=== PATIENT | male | born 1990 | race Caucasian/White ===

== ENCOUNTER 2017-03-23 12:41 | Emergency (ER) | payer OTHER ==
[~2017-03-23] VITALS: Ht 180.3 cm; Wt 128.0 kg
[~2017-03-23 12:41] MED LIST: PALI156P IM; QUET1TAB67 PO; RISP3 PO; RISP4TAB41 PO
[2017-03-23] MEDS ORDERED: RISP4TAB41 PO (12:53)
[2017-03-23] MEDS ORDERED: SERO50TA PO (12:53)
--- NOTE | 2017-03-23 13:18 | PD ---
HPI Chief Complaint: Psychiatric Symptoms Time Seen by Provider: 13:14 Travel History International Travel<30 days: No Contact w/Intl Traveler<30days: No Traveled to known affect area: No History of Present Illness HPI [place] acted by police....parents called police because patient threatened to hurt/kill parents because they refused to give him money to go buy alcohol. patient is angry and uncooperative with history, feels that he shouldn't be here. PFSH Past Medical History Cardiovascular Problems: No Diabetes: No Genitourinary: No Musculoskeletal: No Neurologic: No Reproductive: No Respiratory: No Schizophrenia: Yes Social History Alcohol Use: No Tobacco Use: Yes Substance Use: No (Pt denies) Allergies-Medications (Allergen,Severity, Reaction): Coded Allergies: No Known Allergies (Unverified Adverse Reaction, Unknown, 03/23/17) Reported Meds & Prescriptions Reported Meds & Active Scripts Active Reported Risperdal (Risperidone) 4 Mg Tab 4 Mg PO Q12HR Seroquel (Quetiapine Fumarate) 50 Mg Tab 50 Mg PO HS Review of Systems General / Constitutional: No: Fever Eyes: No: Visual changes HENT: No: Headaches Cardiovascular: No: Chest Pain or Discomfort Respiratory: No: Shortness of Breath Gastrointestinal: No: Abdominal Pain Genitourinary: No: Dysuria Musculoskeletal: No: Pain Skin: No Rash Neurologic: No: Weakness Psychiatric: Positive: Homicidal Ideation Endocrine: No: Polydipsia Hematologic/Lymphatic: No: Easy Bruising Physical Exam Narrative GENERAL: disheveled appearance SKIN: Warm and dry. HEAD: Atraumatic. Normocephalic. EYES: Pupils equal and round. No scleral icterus. No injection or drainage. ENT: No nasal bleeding or discharge. Mucous membranes pink and moist. NECK: Trachea midline. No JVD. CARDIOVASCULAR: Regular rate and rhythm. RESPIRATORY: No accessory muscle use. Clear to auscultation. Breath sounds equal bilaterally. GASTROINTESTINAL: Abdomen soft, non-tender, nondistended. Hepatic and splenic margins not palpable. MUSCULOSKELETAL: Extremities without clubbing, cyanosis, or edema. No obvious deformities. NEUROLOGICAL: Awake and alert. No obvious cranial nerve deficits. Motor grossly within normal limits. Five out of 5 muscle strength in the arms and legs. Normal speech. PSYCHIATRIC: depressed mood and sad affect; Data Data Last Documented VS Orders Orders Complete Blood Count With Diff (03/23/17 13:14) Basic Metabolic Panel (Bmp) (03/23/17 13:14) Urinalysis - C+S If Indicated (03/23/17 13:14) Psych Screen (03/23/17 13:14) Drug Screen, Random Urine (03/23/17 13:14) Alcohol (Ethanol) (03/23/17 13:14) Salicylates (Aspirin) (03/23/17 13:14) Tylenol (Acetaminophen) (03/23/17 13:14) Diet Regular Basic (03/24/17 Breakfast) Diet Regular Basic (03/24/17 Lunch) Diet Regular Basic (03/24/17 Dinner) Diet Regular Basic (03/25/17 Breakfast) Diet Regular Basic (03/25/17 Lunch) Diet Regular Basic (03/25/17 Dinner) Labs Laboratory Tests Test 03/23/17 13:15 White Blood Count 13.5 TH/MM3 Red Blood Count 5.13 MIL/MM3 Hemoglobin 16.9 GM/DL Hematocrit 47.7 % Mean Corpuscular Volume 92.9 FL Mean Corpuscular Hemoglobin 32.8 PG Mean Corpuscular Hemoglobin Concent 35.4 % Red Cell Distribution Width 13.4 % Platelet Count 164 TH/MM3 Mean Platelet Volume 9.1 FL Neutrophils (%) (Auto) 78.5 % Lymphocytes (%) (Auto) 11.8 % Monocytes (%) (Auto) 8.0 % Eosinophils (%) (Auto) 1.3 % Basophils (%) (Auto) 0.4 % Neutrophils # (Auto) 10.6 TH/MM3 Lymphocytes # (Auto) 1.6 TH/MM3 Monocytes # (Auto) 1.1 TH/MM3 Eosinophils # (Auto) 0.2 TH/MM3 Basophils # (Auto) 0.0 TH/MM3 CBC Comment DIFF FINAL Differential Comment Urine Color LIGHT-YELLOW Urine Turbidity CLEAR Urine pH 6.0 Urine Specific [place] 1.004 Urine Protein NEG mg/dL Urine Glucose (UA) NEG mg/dL Urine Ketones NEG mg/dL Urine Occult Blood NEG Urine Nitrite NEG Urine Bilirubin NEG Urine Urobilinogen LESS THAN 2.0 MG/DL Urine Leukocyte Esterase NEG Urine RBC LESS THAN 1 /hpf Microscopic Urinalysis Comment CULT NOT INDICATED Blood Urea Nitrogen 7 MG/DL Creatinine 0.93 MG/DL Random Glucose 71 MG/DL Calcium Level 8.6 MG/DL Sodium Level 136 MEQ/L Potassium Level 3.8 MEQ/L Chloride Level 106 MEQ/L Carbon Dioxide Level 19.7 MEQ/L Anion Gap 10 MEQ/L Estimat Glomerular Filtration Rate 97 ML/MIN Salicylates Level 6.9 MG/DL Urine Opiates Screen NEG Acetaminophen Level LESS THAN 2.0 MCG/ML Urine Barbiturates Screen NEG Urine Amphetamines Screen NEG Urine Benzodiazepines Screen NEG Urine Cocaine Screen NEG Urine Cannabinoids Screen NEG Ethyl Alcohol Level 158 MG/DL MDM Medical Decision Making Medical Screen Exam Complete: Yes Emergency Medical Condition: Yes Medical Record Reviewed: Yes Differential Diagnosis ingestions v electrolyte abnl v intoxication v si v hi Narrative Course nl electrolytes,some etoh on board, no coingestions noted, patient is now medically cleared for psychiatric evaluation Diagnosis Primary Impression: chandana act-medically cleared Carlos Au MD Mar 23, 2017 13:18
[2017-03-23 13:34] LABS: AUTOMATED NEUTROPHIL # 10.6 TH/MM3 (1.8-7.7); BASOPHIL % 0.4 % (0.0-2.0); EOSINOPHIL # 0.2 TH/MM3 (0-0.4); EOSINOPHIL % 1.3 % (0.0-4.0); HEMATOCRIT 47.7 % (39.0-51.0); HEMO FLAGS DIFF FINAL; LYMPH % 11.8 % (9.0-44.0); LYMPHOCYTE # 1.6 TH/MM3 (1.0-4.8); MEAN CELL VOLUME 92.9 FL (80.0-100.0); MEAN CORPUSCULAR HEMOGLOBIN 32.8 PG (27.0-34.0); MEAN CORPUSCULAR HGB CONC 35.4 % (32.0-36.0); NEUT % 78.5 % (16.0-70.0); PLATELET COUNT 164 TH/MM3 (150-450); RED BLOOD COUNT 5.13 MIL/MM3 (4.50-5.90); RED CELL DISTRIBUTION WIDTH 13.4 % (11.6-17.2); WHITE BLOOD COUNT 13.5 TH/MM3 (4.0-11.0)
[2017-03-23 13:38] LABS: BLOOD, URINE NEG (NEG); GLUCOSE,URINE NEG (NEG); KETONE, URINE NEG (NEG); NITRITE,URINE NEG (NEG); URINE COLOR LIGHT-YELLOW (YELLW/STRAW)
[2017-03-23 13:39] LABS: COMMENT (UR) CULT NOT INDICATED; CULTURE IF INDICATED CULT NOT INDICATED
[2017-03-23 13:55] LABS: ANION GAP 10 MEQ/L (5-15)
[2017-03-23 13:58] LABS: ACETAMINOPHEN LESS THAN 2.0 MCG/ML (10.0-30.0); ALCOHOL 158 MG/DL (0-5); BICARBONATE 19.7 MEQ/L (21.0-32.0); BLOOD UREA NITROGEN 7 MG/DL (7-18); CHLORIDE 106 MEQ/L (98-107); GLOMERULAR FILTRATION RATE 97 ML/MIN (>89); POTASSIUM 3.8 MEQ/L (3.5-5.1); SODIUM (NA) 136 MEQ/L (136-145)
[2017-03-23 19:42] VITALS: BP 96/50; PULSE 86; RESP 16; TEMP 99; O2SAT 97
[2017-03-23 22:15] VITALS: BP 119/57; PULSE 94; RESP 18; O2SAT 98
[2017-03-24 02:00] VITALS: BP 111/59; PULSE 78; RESP 16; TEMP 98.4; O2SAT 98
[2017-03-24 06:00] VITALS: BP 115/59; PULSE 80; RESP 18; O2SAT 99
[2017-03-24 10:00] VITALS: BP 131/63; PULSE 97; RESP 18; O2SAT 97
[2017-03-24 18:45] VITALS: BP 103/50; PULSE 71; RESP 18; O2SAT 97
[2017-03-25 06:23] VITALS: BP 121/64; PULSE 67; RESP 18
[2017-03-25 10:16] VITALS: BP 116/51; PULSE 72; RESP 18; TEMP 97.7; O2SAT 98
== END 2017-03-25 16:45 ==
LOC: NEPD 12:41 → NEPJ 03-25 16:45
DX: Z04.6 Encounter for general psychiatric examination, requested by authority (principal); F20.9 Schizophrenia, unspecified
CPT/HCPCS: 80048; 80307; 81001; 85025; 99285